=== PATIENT | male | born 1970 | race Caucasian/White ===

== ENCOUNTER 2017-07-06 08:04 | Emergency (ER) | payer SELFPAY ==
[~2017-07-06] VITALS: Ht 177.8 cm; Wt 61.5 kg
[2017-07-06 08:05] VITALS: BP 155/89; PULSE 90; RESP 17; TEMP 98.4; O2SAT 98
[2017-07-06 09:20] VITALS: BP 134/83; PULSE 71; RESP 17; TEMP 98.3; O2SAT 99
--- NOTE | 2017-07-06 09:23 | PD ---
HPI Chief Complaint: Medical Clearance Time Seen by Provider: 09:23 Travel History International Travel<30 days: No Contact w/Intl Traveler<30days: No Traveled to known affect area: No History of Present Illness HPI 46-year-old male is a chronic opiate abuser as well as cocaine. He wants to get detoxed. He says he last used 24-48 hours ago. Currently he is going through withdrawals mainly in the form of abdominal cramps. His is here for the same situation. Patient says he is not from this area. Vital signs were stable. No active vomiting or diarrhea. Does not appear to be in any significant distress currently. PFSH Past Medical History Narrative Medical List of his past medical, surgical, social and family history is reviewed from the nursing note. Anxiety: Yes Depression: Yes Tetanus Vaccination: Unknown Past Surgical History Surgical History: No Previous Surgery Social History Alcohol Use: No (denies) Tobacco Use: Yes Substance Use: Yes (heroin yesterday) Allergies-Medications (Allergen,Severity, Reaction): Coded Allergies: No Known Allergies (Unverified , 07/06/17) Comments No known drug allergies. Reported Meds & Prescriptions Reported Meds & Active Scripts Active Loperamide (Loperamide HCl) 2 Mg Cap 2 Mg PO DIRECTED PRN 5 Days One capsule after each loose stool. Not to exceed 8 capsules per day. Vistaril (Hydroxyzine Pamoate) 25 Mg Cap 25 Mg PO Q6H PRN Zofran Odt (Ondansetron Odt) 4 Mg Tab 4 Mg SL Q12HR PRN Clonidine (Clonidine HCl) 0.1 Mg Tab 0.1 Mg PO BID Narrative Medication List of his home medications reviewed from the nursing note. Review of Systems Except as stated in HPI: all other systems reviewed are Neg Physical Exam Narrative GENERAL: Awake, alert, no obvious distress SKIN: Focused skin assessment warm/dry. HEAD: Atraumatic. Normocephalic. EYES: Pupils equal and round. No scleral icterus. No injection or drainage. ENT: No nasal bleeding or discharge. Dry lips NECK: Trachea midline. No JVD. CARDIOVASCULAR: Regular rate and rhythm. No murmur appreciated. RESPIRATORY: No accessory muscle use. Clear to auscultation. Breath sounds equal bilaterally. GASTROINTESTINAL: Abdomen soft, non-tender, nondistended. Hepatic and splenic margins not palpable. MUSCULOSKELETAL: No obvious deformities. No clubbing. No cyanosis. No edema. NEUROLOGICAL: Awake and alert. No obvious cranial nerve deficits. Motor grossly within normal limits. Normal speech. PSYCHIATRIC: Appropriate mood and affect; insight and judgment normal. Data Data Last Documented VS Vital Signs Date Time Temp Pulse Resp B/P (MAP) Pulse Ox O2 Delivery O2 Flow Rate FiO2 07/06/17 10:24 71 20 132/93 (106) 98 07/06/17 10:06 Room Air 07/06/17 09:20 98.3 Orders Orders Clonidine (Catapres) (07/06/17 09:30) Hydroxyzine Hcl (Atarax) (07/06/17 09:30) Ondansetron Odt (Zofran Odt) (07/06/17 09:30) Loperamide (Imodium) (07/06/17 09:30) MDM Medical Decision Making Medical Screen Exam Complete: Yes Emergency Medical Condition: Yes Medical Record Reviewed: Yes Differential Diagnosis Opiate withdrawal Narrative Course 10 AM patient was given by mouth clonidine, by mouth Vistaril, by mouth Zofran and by mouth loperamide 1 in the emergency room. I've asked him to go to [facility] and be seen for withdrawal and rehabilitation. Patient will be given the address and directions to get to [facility]. Procedures EKG Prior to Arrival: No Diagnosis Primary Impression: Polysubstance abuse Additional Impression: Heroin withdrawal Additional Instructions: Please go to [facility] for substance rehabilitation. He should go there this morning after being discharged from the emergency room and see if you can be checked in. In case if they cannot see you get the prescriptions filled that you have been given from the emergency room. Med/Other Pt SpecificInfo: Prescription(s) given Scripts Loperamide (Loperamide) 2 Mg Cap 2 MG PO DIRECTED Y for DIARRHEA for 5 Days, CAP 0 Refills One capsule after each loose stool. Not to exceed 8 capsules per day. Prov: Adiel Oreilly MD 07/06/17 Hydroxyzine Pamoate (Vistaril) 25 Mg Cap 25 MG PO Q6H Y for anxiety, #28 CAP 0 Refills Prov: Adiel Oreilly MD 07/06/17 Ondansetron Odt (Zofran Odt) 4 Mg Tab 4 MG SL Q12HR Y for Nausea/Vomiting, #30 TAB 0 Refills Prov: Adiel Oreilly MD 07/06/17 Clonidine (Clonidine) 0.1 Mg Tab 0.1 MG PO BID for Blood Pressure Management, #20 TAB 0 Refills Prov: Adiel Oreilly MD 07/06/17 Disposition: 01 DISCHARGE HOME Condition: Stable Adiel Oreilly MD Jul 06, 2017 09:23
[2017-07-06] MEDS ORDERED: cloNIDine HCL 0.1 MG TAB PO ONE (09:30)
[2017-07-06] MEDS ORDERED: ONDANSETRON ODT 4 MG TAB PO ONE (09:30)
[2017-07-06] MEDS ORDERED: hydrOXYzine HCL 50 MG TAB PO ONE (09:30)
[2017-07-06] MEDS ORDERED: LOPERAMIDE HCL 2 MG CAP PO ONE (09:30)
[2017-07-06 10:06] VITALS: BP 132/93; PULSE 71; RESP 20; O2SAT 98
[2017-07-06] MEDS ORDERED: LOPE2CAP PO (10:11)
[2017-07-06] MEDS ORDERED: ZOFR4TAB3 SL (10:11)
[2017-07-06] MEDS ORDERED: CLON0.1T PO (10:11)
[2017-07-06] MEDS ORDERED: VIST25CA PO (10:11)
[2017-07-06 10:24] VITALS: BP 132/93
== END 2017-07-06 10:27 | disposition home or self-care (01) ==
LOC: NEPD 08:04
DX: F11.23 Opioid dependence with withdrawal (principal); F19.10 Other psychoactive substance abuse, uncomplicated; F41.9 Anxiety disorder, unspecified; F32.9 Major depressive disorder, single episode, unspecified; Z72.0 Tobacco use; Z79.899 Other long term (current) drug therapy
CPT/HCPCS: 99281